=== PATIENT | female | born 1970 | race Caucasian/White ===

== ENCOUNTER 2016-10-25 20:14 | Emergency (ER) | payer SELFPAY ==
--- NOTE | 2016-10-25 20:15 | UCPHY ---
H & P Patient Type: New HPI/ROS: HPI CHIEF COMPLAINT: "I think I have a UTI" HISTORY OF PRESENT ILLNESS: This patient very pleasant 46-year-old female denies any significant medical history presents to urgent care stating that she thinks she may have a urinary tract infection. She tells me that past 24-48 hours he has had dysuria, and noticed some blood in her urine. She denies abdominal pain, fever, flank pain, back pain, nausea. Past Medical History: Denies significant medical history Past Surgical History: denies significant surgical history Social History: denies daily use of drugs alcohol tobacco products Family History: Noncontributory ROS REVIEW OF SYSTEMS: A comprehensive 10 point review of systems is otherwise negative aside from elements mentioned in the history of present illness. Exam Constitutional triage nursing summary reviewed, vital signs reviewed, awake/ alert. Eyes normal conjunctivae and sclera, EOMI, PERRLA. HENT normal inspection, atraumatic, moist mucus membranes, no epistaxis, neck supple/ no meningismus, no raccoon eyes. Respiratory clear to auscultation bilaterally, normal breath sounds, no respiratory distress, no wheezing. Cardiovascular rate normal, regular rhythm, no murmur, no edema, distal pulses normal. Gastrointestinal soft, non-tender, no rebound, no guarding, normal bowel sounds, no distension, no pulsatile mass. Genitourinary no CVA tenderness. Musculoskeletal no midline vertebral tenderness, full range of motion, no calf swelling, no tenderness of extremities, no meningismus, good pulses, neurovascularly intact. Skin pink, warm, & dry, no rash, skin atraumatic. Neurologic awake, alert and oriented x 3, AAOx3, moves all 4 extremities equally, motor intact, sensory intact, CN II-XII intact, normal cerebellar, normal vision, normal speech. Psychiatric normal mood/affect. Heme/Lymph/Immune no lymphadenopathy. Differential Diagnosis: Includes but is not limited to in a particular order, UTI, cystitis, pyelonephritis, kidney stone Medical Decision Making: this patient appears well here nontoxic no acute distress no fever no abdominal pain no back pain no flank pain 24 hours of dysuria and noticed blood in her urine think she has urinary tract infection. Re-evaluation: Will send a formal urinalysis. Urinalysis reviewed shows UTI whites and reds and leukocyte esterase 2+ bacteria. Urinalysis been sent for culture. Prescription given for Keflex and Pyridium. 1st dose given here in a take-home pack of Keflex. Keflex and Pyridium given here in the Urgent Care. She understands return emergency room if there is any worsening symptoms questions concerns Source: Patient - Medical/Surgical History Hx Asthma: No Hx Chronic Respiratory Disease: No Hx Diabetes: No Hx Cardiac Disease: No Hx Renal Disease: No Hx Cirrhosis: No Hx Alcoholism: No Hx HIV/AIDS: No Hx Splenectomy or Spleen Trauma: No - Family History Significant Family History: No pertinent family hx Constitutional: Initial Vital Signs Temperature (C) 36.6 C 10/25/16 20:30 Heart Rate 81 10/25/16 20:30 Respiratory Rate 18 10/25/16 20:30 Blood Pressure 116/69 10/25/16 20:30 O2 Sat (%) 100 10/25/16 20:30 O2 Delivery Mode Room Air Allergies/Adverse Reactions: No Known Allergies Allergy (Unverified 11/15/13 09:37) Home Medications: Medication Instructions Recorded Cephalexin [Keflex] 500 mg PO Q6H #28 cap 10/25/16 Pepcid 10/25/16 Phenazopyridine HCl [Pyridium] 200 mg PO TID #7 tab 10/25/16 Medical Decision Making - Data Points Laboratory Results: 10/25/16 21:00 Urine Color RED Urine Appearance TURBID Urine pH 6.5 (5.0-7.5) Ur Specific [place] 1.020 (1.002-1.030) Urine Protein 2+ H (NEGATIVE) Urine Ketones NEGATIVE (NEGATIVE) Urine Blood 3+ H (NEGATIVE) Urine Nitrate NEGATIVE (NEGATIVE) Urine Bilirubin NEGATIVE (NEGATIVE) Urine Urobilinogen 0.1 EU EU (0.2-1.0) Ur Leukocyte Esterase 2+ H (NEGATIVE) Urine RBC >182 /hpf H /hpf (0-3) Urine WBC 50-182 /hpf H /hpf (0-3) Ur Epithelial Cells TRACE /lpf /lpf (NONE-1+) Urine Bacteria 2+ /hpf H /hpf (NONE SEEN) Urine Mucus 1+ /lpf /lpf (NONE-1+) Ur Culture Indicated? INDICATED H (NI) Urine Glucose NEGATIVE (NEGATIVE) Departure - Departure Disposition: Home, Routine, Self-Care Clinical Impression: UTI (urinary tract infection) Qualifiers: Urinary tract infection type: acute cystitis Hematuria presence: with hematuria Qualified Code(s): N30.01 - Acute cystitis with hematuria Condition: Good Instructions: Urinary Tract Infection in Women (ED), Dysuria (ED) Additional Instructions: 1. Drink lots of fluids stay well-hydrated 2. Return to the urgent care or emergency room if he develops any worsening symptoms includes fever, abdominal pain, back pain, vomiting. Referrals: Loyda Rosenthal MD [Primary Care Provider] - As per Instructions Prescriptions: Cephalexin [Keflex] 500 mg PO Q6H #28 cap Phenazopyridine HCl [Pyridium] 200 mg PO TID #7 tab - PQRS PQRS Measurement: n/a
[2016-10-25 20:31] VITALS: PULSE 81; RESP 18; TEMP 97.9; O2SAT 100
[2016-10-25 20:32] VITALS: BP 116/69
[2016-10-25 21:10] LABS: COLOR RED; PH,URINE 6.5 (5.0-7.5)
[2016-10-25 21:11] LABS: LEUKOCYTE ESTERASE,URINE 2+ (NEGATIVE); NITRITE,URINE NEGATIVE (NEGATIVE)
[2016-10-25 21:12] LABS: BACTERIA 2+ /hpf (NONE SEEN); MUCUS 1+ /lpf (NONE-1+); RBC,URINE >182 /hpf (0-3); WBC,URINE 50-182 /hpf (0-3)
[2016-10-25] MEDS ORDERED: CEPHALEXIN 500 MG CAP PO ONE (21:14)
[2016-10-25] MEDS ORDERED: PHENAZOPYRIDINE HCL 200 MG TAB PO ONE (21:14)
[2016-10-25] MEDS ORDERED: CEPHALEXIN 500MG PREPACK#4 BTL TAKEHOME ONE (21:14)
== END 2016-10-25 21:56 | disposition home or self-care (01) ==
LOC: CED 20:14
DX: N30.01 Acute cystitis with hematuria (principal)
CPT/HCPCS: 81003-PO; 81015-PO; 99204-PO; G0463-PO

== ENCOUNTER → 2017-09-04 | Outpatient (CLI) | payer OTHER | LOC: FIMAGING 16:10 | PROVIDERS: ATTEND Obstetrics & Gynecology | DX: Z12.31 Encounter for screening mammogram for malignant neoplasm of breast (principal) | CPT/HCPCS: G0202 ==